=== PATIENT | female | born 1990 | race Caucasian/White ===

== ENCOUNTER 2018-12-18 19:45 | Emergency (ER) | payer SELFPAY ==
[~2018-12-18] VITALS: Ht 172.7 cm; Wt 86.4 kg
[~2018-12-18 19:45] MED LIST: ABILIFY 15MG TA15 MG PO; ALLEGRA 180MG180 MG PO; ALLEGRA30 MG PO; BUSPAR 30MG30 MG/TAB PO; CONCERTA54 MG PO; INDERAL 10MG10 MG PO; PAXIL CR37.5 MG PO; XYREM500 MG/ML PO; ZORVOLEX35 MG PO
[2018-12-18 19:50] VITALS: BP 125/74; TEMP 98.1
[2018-12-18] MEDS ORDERED: FLAGYL500 MG PO (20:20)
[2018-12-18] MEDS ORDERED: LEVAQUIN 750MG750 M1 PO (20:20)
[2018-12-18 20:51] VITALS: PULSE 105
== END 2018-12-18 20:51 | disposition home or self-care (01) ==
LOC: COL.ER 19:45
DX: S61.551A Open bite of right wrist, initial encounter (principal); S91.351A Open bite, right foot, initial encounter; S51.851A Open bite of right forearm, initial encounter; Z23 Encounter for immunization; W54.0XXA Bitten by dog, initial encounter; Y92.009 Unspecified place in unspecified non-institutional (private) residence as the place of occurrence of the external cause